=== PATIENT | male | born 1940 | race Caucasian/White ===

== ENCOUNTER 2021-12-03 06:55 | Day surgery (SDC) | payer OTHER ==
[2021-11-24 13:48] VITALS: BMI 30.4
[2021-12-03] MEDS ORDERED: MIDAZOLAM HCL 2 MG/2 ML SINGLE DOSE VIAL ONE (08:39)
[2021-12-03] MEDS ORDERED: BUPIVACAINE LIPOSOME/PF (EXPAREL) 266 MG/20 ML VIAL ONE (08:39)
[2021-12-03] MEDS ORDERED: BUPIVACAINE HCL/PF 0.5% (5MG/ML) 10 ML VIAL ONE (08:39)
[2021-12-03] MEDS ORDERED: SODIUM CHLORIDE 0.9% P/F 10 ML VIAL IJ ONE (08:40)
[2021-12-03] MEDS ORDERED: SUCCINYLCHOLINE CHLORIDE 200 MG/10 ML SYRINGE ONE (08:58)
[2021-12-03] MEDS ORDERED: PROPOFOL 20 ML ONE ×2 (08:58)
[2021-12-03] MEDS ORDERED: CEFAZOLIN 2 GM in DEXTROSE 5%-WATER - 50 ML IVPB ONE (09:00)
[2021-12-03] MEDS ORDERED: TRANEXAMIC ACID 1000 MG/10 ML VIAL IVPUSH ONE (10:00)
[2021-12-03] MEDS ORDERED: MAG HYDROX/AL HYDROX/SIMETH 30 ML UNIT-DOSE CUP PO PRN (11:34)
[2021-12-03] MEDS ORDERED: ONDANSETRON 4 MG/2 ML VIAL IVPUSH PRN ×2 (11:34→11:35)
[2021-12-03] MEDS ORDERED: oxyCODONE HCL 5 MG TABLET PO PRN (11:35)
[2021-12-03] MEDS ORDERED: LACTATED RINGERS SOLUTION 1,000 ML IV SCH (11:45)
[2021-12-03] MEDS ORDERED: ACETAMINOPHEN 500 MG TABLET (FP) ONE (12:07)
[2021-12-03] MEDS: ACETAMINOPHEN 500 MG TABLET (FP) PO SCH ×2 (12:14→17:10)
[2021-12-03] MEDS ORDERED: ceFAZolin SODIUM 1 GM VIAL ONE (16:53)
[2021-12-03] MEDS ORDERED: DEXTROSE 5%-WATER - 50 ML IVPB ONE (16:53)
[2021-12-03] MEDS: CEFAZOLIN 2 GM in DEXTROSE 5%-WATER - 50 ML IVPB SCH (17:11)
[2021-12-03] MEDS: SENNOSIDES/DOCUSATE COMBO (SENNA PLUS) TABLET (UD) PO SCH (21:27)
[2021-12-03] MEDS: ASCORBIC ACID 500 MG TABLET (FP) PO SCH (21:27)
[2021-12-03] MEDS: ASPIRIN COATED 81 MG TABLET.EC PO SCH (21:27)
[2021-12-03] MEDS: CARVEDILOL 12.5 MG TABLET (FP) PO SCH (21:28)
[2021-12-03] MEDS ORDERED: ROSUVASTATIN CA 10 MG TABLET PO SCH (22:00)
[2021-12-04] MEDS: CEFAZOLIN 2 GM in DEXTROSE 5%-WATER - 50 ML IVPB SCH (02:37)
[2021-12-04] MEDS ORDERED: DEXTROSE 5%-WATER - 50 ML IVPB ONE (03:33)
[2021-12-04] MEDS ORDERED: ceFAZolin SODIUM 1 GM VIAL ONE (03:33)
[2021-12-04] MEDS: ACETAMINOPHEN 500 MG TABLET (FP) PO SCH ×4 (03:37→21:27)
[2021-12-04] MEDS: oxyCODONE HCL 5 MG TABLET PO PRN ×2 (08:48→14:09)
[2021-12-04] MEDS: PANTOPRAZOLE 40 MG TABLET PO SCH (09:01)
[2021-12-04] MEDS: MULTIVITAMINS (DAILY MVI) TABLET (FP) PO SCH (09:01)
[2021-12-04] MEDS: CARVEDILOL 12.5 MG TABLET (FP) PO SCH ×2 (09:01→21:27)
[2021-12-04] MEDS: ASPIRIN COATED 81 MG TABLET.EC PO SCH ×2 (09:01→21:26)
[2021-12-04] MEDS: amLODIPine BESYLATE 5 MG TABLET (FP) PO SCH (09:01)
[2021-12-04] MEDS: SENNOSIDES/DOCUSATE COMBO (SENNA PLUS) TABLET (UD) PO SCH ×2 (09:01→21:26)
[2021-12-04] MEDS: ASCORBIC ACID 500 MG TABLET (FP) PO SCH ×2 (09:01→21:26)
[2021-12-04 10:29] LABS: HEMATOCRIT 32.8 % (35.4-49); HEMOGLOBIN 11.4 G/dL (11.7-16.9); MCHC 34.8 g/dl (32.0-35.9); MEAN CELL VOLUME 89.1 fl (80-96); MEAN PLT VOLUME 8.1 fl (7.5-11.1); PLATELET COUNT 132.6 10^3/uL (134-434); RBC 3.68 10^6/uL (4.00-5.60); RDW 14.3 % (11.9-15.9); WHITE BLOOD COUNT 7.2 10^3/uL (4.0-10.8)
[2021-12-04 10:38] LABS: CALCIUM 9.1 mg/dl (8.5-10); CREATININE 1.6 mg/dl (0.55-1.3)
[2021-12-04] MEDS: CEPHALEXIN MONOHYDRATE 250 MG CAPSULE (FP) PO SCH (17:32)
[2021-12-04 18:14] LABS: URIC ACID CRYSTALS 1+ /hpf (NONE SEEN)
[2021-12-04] MEDS ORDERED: TAMSULOSIN HCL 0.4 MG CAP PO SCH (18:30)
[2021-12-05] MEDS: ACETAMINOPHEN 500 MG TABLET (FP) PO SCH (05:00)
[2021-12-05] MEDS: CEPHALEXIN MONOHYDRATE 250 MG CAPSULE (FP) PO SCH ×2 (06:01)
[2021-12-05 08:25] LABS: HEMATOCRIT 30.9 % (35.4-49); HEMOGLOBIN 10.6 G/dL (11.7-16.9); MCH 30.6 pg (25.7-33.7); MCHC 34.1 g/dl (32.0-35.9); MEAN CELL VOLUME 89.5 fl (80-96); MEAN PLT VOLUME 8.4 fl (7.5-11.1); PLATELET COUNT 125.9 10^3/uL (134-434); RBC 3.45 10^6/uL (4.00-5.60); RDW 14.4 % (11.9-15.9); WHITE BLOOD COUNT 8.1 10^3/uL (4.0-10.8)
[2021-12-05 08:53] LABS: ADD RBC MORPHOLOGY YES; PLATELET ESTIMATE SLT DECREASE
[2021-12-05 08:55] LABS: ANISOCYTOSIS 1+
[2021-12-05 09:02] VITALS: PULSE 76; TEMP 98.5
[2021-12-05 09:08] VITALS: BP 115/56
[2021-12-05] MEDS: SENNOSIDES/DOCUSATE COMBO (SENNA PLUS) TABLET (UD) PO SCH (09:09)
[2021-12-05] MEDS: amLODIPine BESYLATE 5 MG TABLET (FP) PO SCH (09:09)
[2021-12-05] MEDS: MULTIVITAMINS (DAILY MVI) TABLET (FP) PO SCH (09:10)
[2021-12-05] MEDS: PANTOPRAZOLE 40 MG TABLET PO SCH (09:10)
[2021-12-05] MEDS: ASPIRIN COATED 81 MG TABLET.EC PO SCH (09:10)
[2021-12-05] MEDS: ASCORBIC ACID 500 MG TABLET (FP) PO SCH (09:10)
[2021-12-05] MEDS: CARVEDILOL 12.5 MG TABLET (FP) PO SCH (09:10)
== END 2021-12-05 11:40 | disposition home or self-care (01) ==
LOC: FASU 06:55 → FM/S 13:01 → FASU 12-05 11:40
PROVIDERS: ATTEND Orthopaedic Surgery
PROC: 0SRD0J9 Replacement of Left Knee Joint with Synthetic Substitute, Cemented, Open Approach (ICD-10-PCS; principal; 2021-12-03 09:37)
DX: M17.12 Unilateral primary osteoarthritis, left knee (principal)
CPT/HCPCS: 27447; C1776; 36415; 73560-TC-LT-FY; 80048; 81003; 81015; 82962; 85025; 88304-TC; 88311-TC; 94760; 97010-GP; 97116-GP; 97162-GP